=== PATIENT | male | born 1965 | race Caucasian/White ===

== ENCOUNTER → 2018-02-11 13:34 | Outpatient (CLI) | payer OTHER, SELFPAY ==
[2018-02-14 08:08] LABS: Comment 1a (.); HCV Quant. RNA PCR 114000 IU/mL (.)
[2018-02-14 10:29] LABS: HCV log 10 5.057 (.); Hep C Antibodies >11.0 s/co ratio (0.0-0.9)
[2018-02-14 10:44] LABS: Hepatitis C Genotype 1a
== END ==
PROVIDERS: PCP Family Medicine; Visit Provider Internal Medicine Medical Oncology
DX: D67 Hereditary factor IX deficiency (principal); B18.2 Chronic viral hepatitis C
CPT/HCPCS: 36415; 86803; 87522; 87902

== ENCOUNTER → 2019-02-10 11:26 | Outpatient (CLI) | payer OTHER, SELFPAY ==
[2019-02-10 11:35] VITALS: BP 134/89; PULSE 73; RESP 14; TEMP 36.8; O2SAT 99; BMI 28.0
--- NOTE | 2019-02-10 12:09 | HTC.HP3 ---
Problem List (1) Hemophilia B in male Status: Chronic Subjective Date of Service:: 02/10/19 Chief Complaint: F/u for Hemophilia B. 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 Used factor replacement for Endoscopy. Getting ready for Hepatitis C treatment. Health History: Past Medical History Past Medical History: Bleeding disorder,Liver disease Family History Paternal Past Medical History: Unknown Maternal Past Medical History: Arthritis Past Medical History (Last Updated 02/10/19 @ 11:41 by Nicole Calloway) Anemia (Acute) past surgical history colonoscopy (Acute) past surgical history of upper GI scope (Acute) Family History (Last Reviewed 02/10/19 @ 11:34 by Nicole Calloway) Mother Arthritis Allergies/Adverse Reactions: Allergy/AdvReac Type Severity Reaction Status Date / Time aspirin AdvReac Severe BLEEDING Verified 02/10/19 11:34 Risk Factors Social History Smoking Status Never smoker Tobacco Risk Data: Tobacco Risk Smoking Status Never smoker Type of tobacco: Smokeless tobacco usage: Items/Day: Year started: Years used: Counseled to quit/cut down: Reason for no counseling performed: Reason for no pharmacotherapy: Tobacco use comments: Passive smoke exposure: Substance Risk Drug use: No Caffeine use [drinks/day]: Alcohol use: No Type of alcohol: Drinks per day: Has patient felt the need to cut down: Has the patient been annoyed by complaints: Has the patient felt guilty about drinking: 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 an 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 fur tinter in 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: Comments: Review of Systems Constitutional:: Denies: Fever, Sweats, Weight loss, Appetite change, Chills Cardiovascular:: Denies: Chest pain, Palpitations, Dyspnea on exertion, Orthopnea, PND, Shortness of breath Respiratory: Denies: Cough, Hemoptysis, Shortness of Breath, Wheezing Gastrointestinal:: Denies: Abdominal pain, Nausea, Vomiting, Diarrhea, Constipation, Hematochezia Genitourinary: Denies: Dysuria, Hematuria, 15, Flank pain Musculoskeletal:: Denies: Back pain, Myalgia, Arthralgia Skin: Denies: Rash, Skin Changes, Wounds Neurological:: Denies: Headache, Dizziness, Visual changes, Tinnitus, Hearing loss Psychiatric: Denies: Anxiety, Depression, Homicidal Ideations, Suicidal Ideations Vital Signs Height 5 ft 10.5 in Weight: 90.038 kg Weight in Pounds 198.5 lbs Pulse Ox 99 Temperature 98.2 F Pulse Rate 73 Respiratory Rate 14 Blood Pressure 134/89 Blood Pressure Position Sitting - Physical Exam General: Alert, Oriented x3, No apparent distress HEENT: Atraumatic, PERRLA, EOMI, Normocephalic Oropharynx:: Dry mucosa Neck:: Supple, Trachea midline. Negative for: JVD, bilateral Cardiac:: Regular rate, Regular rhythm, Normal S1, Normal S2. Negative for: Murmur Lungs: Clear to auscultation, Excusion symmetrical. Negative for: Rhonchi, Wheezes Abdomen:: Bowel sounds x 4, Soft, Non-tender, Non-distended. Negative for: Hepatosplenomegaly Extremities:: Negative for: Cyanosis, Edema Neurological: Neuro grossly intact Skin:: Negative for: Lesions, Rash, Petechiae, Ecchymosis Psychiatric:: Appropriate affect, Euthymic Lymphatics:: Negative for: Cervical lymphadenopathy, Supraclavicular lymphadenopathy, Axillary lymphadenopathy Therapy ROM Screening - Subjective Subjective:: Pt states he is doing well- no concerns at this time. - Objective Right shoulder flex:: 150 Left shoulder flex:: 150 Right shoulder extension:: 60 Left shoulder extension:: 60 Right elbox flex/ext:: 140/0 Left elbox flex/ext:: 140/0 Right elbow circumference:: 30cm Left elbow circumference:: 29cm Right forearm sup/pron:: light imited due to hx of fx arm Left forearm sup/pron:: WNL Right knee flexion:: 110 Left knee flexion:: 110 Right knee circumference:: 38cm Left knee circumference:: 38cm Right ankle dorsiflexion:: 20 Left ankle dorsiflexion:: 20 Right ankle Plan-flex:: 45 Left ankle Plan-flex:: 45 Right ankle circumference:: not tested boots on Left ankle circumference:: not tested boots on Right hip flexion:: 90 Left hip flexion:: 95 Right hip extension:: 15 Left hip extension:: 15 - Assessment Assessment:: pt demo all ROM WNL - no concerns at this time. Assessment and Plan Hemophilia B, clinically stable. Hepatitis C. Plan is to continue expectant management with factor replacement as needed. Proceed with Hep C therapy. RTC 1 yr. Medications: Prescriptions This Visit Medication Instructions Recorded Ferrous Sulfate [Iron] 325 mg PO BID 06/14/19 Primary Care Provider: George Sandhu MD Referring Provider: Raul Zamudio MD
--- NOTE | 2019-02-10 12:16 | WMO.HTC_ITS ---
Problem List (1) Hemophilia B in male Status: Chronic Subjective Date of Service:: 02/10/19 Chief Complaint: F/u for Hemophilia B. 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 Used factor replacement for En doscopy. Getting ready for Hepatitis C treatment. Health History: Past Medical History Past Medical History: Bleeding disorder,Liver disease Family History Paternal Past Medical History: Unknown Maternal Past Medical History: Arthritis Past Medical History (Last Updated 02/10/19 @ 11:41 by Nicole Calloway) Anemia (Acute) past surgical history colonoscopy (Acute) past surgical history of upper GI scope (Acute) Family History (Last Reviewed 02/10/19 @ 11:34 by Nicole Calloway) Mother Arthritis Allergies/Adverse Reactions: Allergy/AdvReac Type Severity Reaction Status Date / Time aspirin AdvReac Severe BLEEDING Verified 02/10/19 11:34 Risk Factors Social History Smoking Status Never smoker Tobacco Risk Data: Tobacco Risk Smoking Status Never smoker Type of tobacco: Smokeless tobacco usage: Items/Day: Year started: Years used: Counseled to quit/cut down: Reason for no counseling performed: Reason for no pharmacotherapy: Tobacco use comments: Passive smoke exposure: Substance Risk Drug use: No Caffeine use [drinks/day]: Alcohol use: No Type of alcohol: Drinks per day: Has patient felt the need to cut down: Has the patient been annoyed by complaints: Has the patient felt guilty about drinking: 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 an 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: Comments: Review of Systems Constitutional:: Denies: Fever, Sweats, Weight loss, Appetite change, Chills Cardiovascular:: Denies: Chest pain, Palpitations, Dyspnea on exertion, Ort hopnea, PND, Shortness of breath Respiratory: Denies: Cough, Hemoptysis, Shortness of Breath, Wheezing Gastrointestinal:: Denies: Abdominal pain, Nausea, Vomiting, Diarrhea, Constipation, Hematochezia Genitourinary: Denies: Dysuria, Hematuria, 15, Flank pain Musculoskeletal:: Denies: Back pain, Myalgia, Arthralgia Skin: Denies: Rash, Skin Changes, Wounds Neurological:: Denies: Headache, Dizziness, Visual changes, Tinnitus, Hearing loss Psychiatric: Denies: Anxiety, Depression, Homicidal Ideations, Suicidal Ideations Vital Signs Height 5 ft 10.5 in Weight: 90.038 kg Weight in Pounds 198.5 lbs Pulse Ox 99 Temperature 98.2 F Pulse Rate 73 Respiratory Rate 14 Blood Pressure 134/89 Blood Pressure Position Sitting - Physical Exam General: Alert, Oriented x3, No apparent distress HEENT: Atraumatic, PERRLA, EOMI, Normocephalic Oropharynx:: Dry mucosa Neck:: Supple, Trachea midline. Negative for: JVD, bilateral Cardiac:: Regular rate, Regular rhythm, Normal S1, Normal S2. Negative for: Murmur Lungs: Clear to auscultation, Excusion symmetrical. Negative for: Rhonchi, Wheezes Abdomen:: Bowel sounds x 4, Soft, Non-tender, Non-distended. Negative for: Hepatosplenomegaly Extremities:: Negative for: Cyanosis, Edema Neurological: Neuro grossly intact Skin:: Negative for: Lesions, Rash, Petechiae, Ecchymosis Psychiatric:: Appropriate affect, Euthymic Lymphatics:: Negative for: Cervical lymphadenopathy, Supraclavicular lymphadenopathy, Axillary lymphadenopathy Therapy ROM Screening - Subjective Subjective:: Pt states he is doing well- no concerns at this time. - Objective Right shoulder flex:: 150 Left shoulder flex:: 150 Right shoulder extension:: 60 Left shoulder extension:: 60 Right elbox flex/ext:: 140/0 Left elbox flex/ext:: 140/0 Right elbow circumference:: 30cm Left elbow circumference:: 29cm Right forearm sup/pron:: light imited due to hx of fx arm Left forearm sup/pron:: WNL Right knee flexion:: 110 Left knee flexion:: 110 Right knee circumference:: 38cm Left knee circumference:: 38cm Right ankle dorsiflexion:: 20 Left ankle dorsiflexion:: 20 Right ankle Plan-flex:: 45 Left ankle Plan-flex:: 45 Right ankle circumference:: not tested boots on Left ankle circumference:: not tested boots on Right hip flexion:: 90 Left hip flexion:: 95 Right hip extension:: 15 Left hip extension:: 15 - Assessment Assessment:: pt demo all ROM WNL - no concerns at this time. Assessment and Plan Hemophilia B, clinically stable. Hepatitis C. Plan is to continue expectant management with factor replacement as needed. Proceed with Hep C therapy. RTC 1 yr. Medications: Prescriptions This Visit Medication Instructions Recorded Ferrous Sulfate [Iron] 325 mg PO BID 02/10/19 Primary Care Provider: George Sandhu MD Referring Provider: Raul Zamudio MD
== END ==
PROVIDERS: Family Provider Family Medicine; PCP Family Medicine; Visit Provider Internal Medicine Medical Oncology
DX: D67 Hereditary factor IX deficiency (principal)

== ENCOUNTER → 2019-05-12 14:27 | Outpatient (CLI) | payer OTHER, SELFPAY ==
[2019-02-10 11:35] VITALS: BMI 28.0
[2019-05-12 15:41] LABS: Hematocrit 21.2 % (40-54); Hemoglobin 6.4 g/dL (13.0-16.5); Mean Corp Hgb Conc 30.2 g/dL (32-36); Mean Corpuscular Hgb 27.5 pg (27.0-32.0); Mean Platelet Vol. 10.3 fl (6.2-12.0); Platelet Count 111 K/mm3 (150-450); RBC Distribution Width CV 19.2 % (11.6-14.6); RBC Distribution Width SD 63.6 fl (35.1-43.9); Red Blood Count 2.33 M/mm3 (4.6-6.2); White Blood Count 3.1 K/mm3 (4.4-11.0)
[2019-05-12 16:18] LABS: AST(SGOT) 54 U/L (15-37); Alanine Aminotransfer ALT/SGPT 44 U/L (16-61); Albumin, Serum 2.9 g/dL (3.2-5.0); Alkaline Phosphatase 52 U/L (45-117); Bilirubin, Direct 0.09 mg/dL (0.00-0.30); Globulin 3.4 g/dL (2.2-4.2); Protein, Total 6.3 g/dL (6.4-8.2)
[2019-05-13 09:33] LABS: Hepatitis B Surface Antigen REACTIVE (Nonreactive)
== END ==
PROVIDERS: Family Provider Family Medicine; PCP Family Medicine; Referring Provider Internal Medicine Gastroenterology; Visit Provider Internal Medicine Gastroenterology
DX: B18.1 Chronic viral hepatitis B without delta-agent (principal); B18.2 Chronic viral hepatitis C
CPT/HCPCS: 36415; 80076; 85027; 87340